=== PATIENT | female | born 1965 | race Caucasian/White ===

== ENCOUNTER 2020-07-11 19:29 | Inpatient (IN) | payer BC, MEDICAID ==
[~2020-07-11] VITALS: Ht 167.6 cm; Wt 95.1 kg
[2020-07-11] MEDS ORDERED: SODIUM CHLORIDE 0.9% 1,000 ML IV ONE (20:00)
[2020-07-11 20:32] LABS: Basophils # (auto) 0 10 ^3/uL (0-0.2); Eosinophils # (auto) 0.4 10 ^3/uL (0-0.8); Lymphocytes # (auto) 1.6 10 ^3/uL (0.4-5.4); Monocytes # (auto) 0.4 10 ^3/uL (0-1.3); Neutrophils # (auto) 4.4 10 ^3/uL (1.6-8.6)
[2020-07-11 20:34] LABS: Basophils % (auto) 0.4 % (0.0-2.0); Eosinophils % (auto) 5.3 % (0.0-7.0); Hematocrit 41.3 % (36.0-46.0); Lymphocytes % (auto) 22.9 % (10.0-50.0); Mean Corpuscular Hemoglobin 34.8 pg (28.0-32.0); Mean Corpuscular Hgb Conc. 33.8 g/dL (32.0-36.0); Mean Corpuscular Volume 102.8 fL (80.0-100.0); Neutrophils % (auto) 65.4 % (37.0-80.0); Nucleated Red Blood Cells % 0.1 %; Platelet Count (auto) 286 10^3/uL (140-450); Red Blood Cells 4.01 10^6/uL (4.0-5.20); White Blood Cell 6.8 10^3/uL (4.4-10.8)
[2020-07-11] MEDS ORDERED: ONDANSETRON HCL 4 MG/2 ML VIAL IV ONE (20:45)
[2020-07-11] MEDS ORDERED: MORPHINE SULF INJ 2 MG/ML SYRINGE 1ML IV ONE ×2 (20:45→21:30)
[2020-07-11] MEDS ORDERED: SODIUM CHLORIDE 0.9% 1,000 ML IVB ONE (20:45)
[2020-07-11 20:49] LABS: Alanine Aminotransferase 17 U/L (13-56); Albumin 3.7 g/dL (3.4-5.0); Anion Gap 5 (5-15); Aspartate Aminotransferase 24 U/L (15-37); BUN/Creatinine Ratio 13.5; Blood Urea Nitrogen 10 mg/dL (7-18); Calcium 8.5 mg/dL (8.5-10.1); Carbon Dioxide 24 mmol/L (21-32); Chloride 114 mmol/L (98-107); GFR African American 104 mL/min; GFR Non-African American 86 mL/min; Glucose 99 mg/dL (74-106); Potassium 3.7 mmol/L (3.5-5.1); Sodium 143 mmol/L (136-145)
[2020-07-11 20:54] LABS: Alkaline Phosphatase 61 U/L (45-117); Bilirubin, Total 0.2 mg/dL (0.2-1.0); Total Protein 7.1 g/dL (6.4-8.2)
[2020-07-11 21:28] LABS: INR 0.98 (0.9-1.15); Partial Thromboplastin Time 27.5 sec (23.0-31.2)
[2020-07-11] MEDS ORDERED: PROMETHAZINE HCL 25 MG/ML 1ML IV ONE (21:30)
[2020-07-11] MEDS ORDERED: SODIUM CHLORIDE 0.9% 500 ML IV ONE (21:30)
[2020-07-11] MEDS ORDERED: TAMSULOSIN HYDROCHLORIDE 0.4 MG CAP PO ONE (21:30)
[2020-07-11] MEDS ORDERED: ACETAMINOPHEN 325 MG TAB PO PRN (21:30)
[2020-07-11] MEDS ORDERED: TEMAZEPAM 15 MG CAP PO PRN (21:30)
[2020-07-11] MEDS: FAMOTIDINE 20 MG TAB PO SCH (22:07)
[2020-07-11 22:30] VITALS: BP 121/83
[2020-07-11] MEDS: MORPHINE SULF INJ 2 MG/ML SYRINGE 1ML IV PRN (22:51)
--- NOTE | 2020-07-11 22:57 | NUR ---
MS admit from ER SHERWIN,DEBRA admitted to tele/MS, SBAR not received. Patient oriented to Mariana Walker primary RN, unit, room, bed, and unit policies regarding patient care and visiting hours. Patient weighed by bedscale and encouraged to call if they need something. All questions and concerns addressed, patient verbalized understanding.
--- NOTE | 2020-07-11 23:52 | NUR ---
Patient told to void in the hat in the toilet. Patient aware to call once she has voided so urine can be strained. Will continue to monitor.
[2020-07-12] MEDS ORDERED: PARO-135 (00:58)
[2020-07-12] MEDS ORDERED: MEDR2.5T3 PO (00:58)
[2020-07-12] MEDS ORDERED: ESTR1TAB3 PO (00:58)
[2020-07-12] MEDS ORDERED: [UNRECOGNIZED DRUG - CODE] PO (00:58)
[2020-07-12 04:58] VITALS: BP 95/61
[2020-07-12] MEDS: MORPHINE SULF INJ 2 MG/ML SYRINGE 1ML IV PRN ×2 (05:06→11:58)
--- NOTE | 2020-07-12 05:06 | NUR ---
Patient voided. Urine strained, no stones noted at this time. Will continue to monitor. Patient still in pain in her left flank. Morphine to be given per protocol based on patients pain level.
[2020-07-12 05:59] LABS: Basophils # (auto) 0 10 ^3/uL (0-0.2); Basophils % (auto) 0.3 % (0.0-2.0); Eosinophils # (auto) 0.3 10 ^3/uL (0-0.8); Eosinophils % (auto) 5.7 % (0.0-7.0); Hematocrit 35.4 % (36.0-46.0); Lymphocytes # (auto) 1.7 10 ^3/uL (0.4-5.4); Lymphocytes % (auto) 29.5 % (10.0-50.0); Mean Corpuscular Hemoglobin 35.2 pg (28.0-32.0); Mean Corpuscular Hgb Conc. 33.9 g/dL (32.0-36.0); Mean Corpuscular Volume 104.1 fL (80.0-100.0); Monocytes # (auto) 0.4 10 ^3/uL (0-1.3); Monocytes % (auto) 6.5 % (0.0-12.0); Neutrophils # (auto) 3.3 10 ^3/uL (1.6-8.6); Platelet Count (auto) 211 10^3/uL (140-450); Red Blood Cells 3.41 10^6/uL (4.0-5.20); White Blood Cell 5.7 10^3/uL (4.4-10.8)
[2020-07-12 06:18] LABS: Potassium 3.5 mmol/L (3.5-5.1)
[2020-07-12 06:23] LABS: BUN/Creatinine Ratio 17.4; Calcium 7.7 mg/dL (8.5-10.1)
[2020-07-12 09:00] VITALS: BP 118/75
[2020-07-12] MEDS: FAMOTIDINE 20 MG TAB PO SCH ×2 (09:06→21:11)
[2020-07-12] MEDS: ONDANSETRON HCL 4 MG/2 ML VIAL IV PRN (09:07)
[2020-07-12] MEDS: HYDROcodone-ACET 5/325MG TAB PO PRN ×3 (09:07→22:02)
--- NOTE | 2020-07-12 10:03 | NUR ---
SPOKE WITH Yissel MUELLER, INFORMED OF PATIENT STATUS. INFORMED PATIENT DID EAT BREAKFAST THIS MORNING AT 0800AM. RECEIVED ORDERS. SEE EMAR.
--- NOTE | 2020-07-12 10:45 | NUR ---
COVID SWAB COLLECTED AND WALKED UP TO LAB BY EVGENY MARIO.
[2020-07-12] MEDS ORDERED: TAMSULOSIN HYDROCHLORIDE 0.4 MG CAP PO ONE (11:30)
[2020-07-12 13:00] VITALS: BP 102/50
[2020-07-12] MEDS: SODIUM CHLORIDE 0.9% 1,000 ML IV SCH ×2 (13:56→21:13)
[2020-07-12] MEDS ORDERED: LIDOCAINE 1% HCL (LOCAL ANESTH.) INJ 20ML MDV ONE (15:27)
[2020-07-12] MEDS ORDERED: PROPOFOL 10 MG/ML 20 ML IV ONE (15:29)
[2020-07-12] MEDS ORDERED: ONDANSETRON HCL 4 MG/2 ML VIAL ONE (15:29)
[2020-07-12] MEDS ORDERED: SODIUM CHLORIDE LOCK 10 ML ONE (15:29)
[2020-07-12] MEDS ORDERED: fentaNYL CITRATE 100 MCG/2 ML VL ONE (15:30)
[2020-07-12] MEDS ORDERED: MIDAZOLAM HCL 1MG/1ML-2 ML VIAL ONE (15:30)
--- NOTE | 2020-07-12 16:35 | NUR ---
PATIENT WHEELED DOWN TO OR VIA BED FOR SCHEDULED PROCEDURE. PATIENT WITH PATENT IV TO R FOREARM 20 GAUGE. TRANSPORTED WITH MASK ON. NO S/S OF DISTRESS NOTED AT THIS TIME.
[2020-07-12 16:41] VITALS: BP 105/58
[2020-07-12] MEDS ORDERED: CIPROFLOXACIN 400MG/200ML 200 ML IV ONE (16:41)
[2020-07-12] MEDS ORDERED: MORPHINE SULFATE 4 MG/ML SYR/VIAL IV PRN (18:00)
[2020-07-12] MEDS ORDERED: METOCLOPRAMIDE HCL 5MG/ml INJ 2ml VIAL IV PRN (18:00)
[2020-07-12] MEDS ORDERED: HYDROmorphone HCL 2 MG/ML VL IV PRN (18:00)
[2020-07-12] MEDS ORDERED: IOHEXOL 300 MG/ML 100ML BOTTLE IJ ONE (18:27)
--- NOTE | 2020-07-12 20:00 | NUR ---
PT. RECEIVED FROM OR, PT. AWAKE, ALERT AND ORIENTED, V/S STABLE, NO C/O PAIN, NO SOB.
[2020-07-12 22:00] VITALS: BP 129/68
[2020-07-13] MEDS: HYDROcodone-ACET 5/325MG TAB PO PRN ×3 (02:02→10:29)
[2020-07-13] MEDS: SODIUM CHLORIDE 0.9% 1,000 ML IV SCH ×2 (03:05→09:56)
[2020-07-13 05:00] VITALS: BP 119/63
[2020-07-13 08:00] VITALS: BP 132/69
[2020-07-13 09:00] VITALS: BP 132/69
[2020-07-13] MEDS ORDERED: PATIENTS OWN MEDICATION PO SCH (10:00)
[2020-07-13] MEDS ORDERED: HYSINGLA PO SCH (10:00)
--- NOTE | 2020-07-13 10:00 | NUR ---
Patient said she has one pill left of her Hysingla (Hyrdocodone) from home, she gave it to the night supervisor RN, she takes it at 6:00 pm.
[2020-07-13] MEDS: FAMOTIDINE 20 MG TAB PO SCH (10:01)
--- NOTE | 2020-07-13 10:06 | NUR ---
Called the Pharmacist to change the schedule for POM Hysingla (Hydrocodone) to 1800 pm; patient stated she takes the medication at 6:00 pm. Pharmacist said there's only one pill of Hysingla left in the bottle. Pharmacist to change the schedule for Hysingla to 1800 pm.
[2020-07-13 12:41] VITALS: BP_SYST 115; BP_SYST 155; BP_DIAS 65; BP_DIAS 92
[2020-07-13 13:22] VITALS: BP 132/69
[2020-07-13 13:36] VITALS: BP 132/69
[2020-07-13] MEDS: ONDANSETRON HCL 4 MG/2 ML VIAL IV PRN (13:55)
--- NOTE | 2020-07-13 14:40 | NUR ---
Discharge instructions given as ordered. Encourage to follow up with PMD as instructed. All questions and concerns addressed. Patient verbalized understanding. Medication reconciliation form completed and copy given to patient. Home medications held in Pharmacy returned to patient. IV removed with catheter intact, pressure dressing applied. Patient is ambulatory, steady gait noted, patient refused to be discharged via wheelchair, patient stated her car is at the parking lot, she will drive home. No distress noted at time of departure.
[2020-07-13] MEDS ORDERED: TAMSULOSIN HYDROCHLORIDE 0.4 MG CAP PO SCH (18:00)
[2020-07-14] MEDS ORDERED: HYSINGLA PO SCH (18:00)
== END 2020-07-13 14:38 | disposition home or self-care (01) | DRG 694 ==
LOC: ER 19:31 → OVERFLOW 19:32 → WEST WING 22:24
PROVIDERS: ADMIT Nurse Practitioner; ATTEND Family Medicine
PROC: 0TF7XZZ Fragmentation in Left Ureter, External Approach (ICD-10-PCS; principal; 2020-07-12 18:10)
DX: N13.2 Hydronephrosis with renal and ureteral calculous obstruction (principal); E66.9 Obesity, unspecified; E86.0 Dehydration; Z20.828 Contact with and (suspected) exposure to other viral communicable diseases; Z88.0 Allergy status to penicillin; Z68.33 Body mass index [BMI] 33.0-33.9, adult; Z82.49 Family history of ischemic heart disease and other diseases of the circulatory system; Z85.05 Personal history of malignant neoplasm of liver; Z87.442 Personal history of urinary calculi
CPT/HCPCS: 36415; 71045; 74176; 80048; 80053; 83735; 84484; 85025; 85610; 85730; 86850; 86900; 86901; 87426; G0378; J2001; J2250; J2405; J2704

== ENCOUNTER 2021-02-03 20:12 | Emergency (ER) | payer BC, MEDICAID ==
[~2021-02-03] VITALS: Ht 165.1 cm; Wt 90.7 kg
[~2021-02-03 20:12] MED LIST: MEDR2.5T3 PO; PARO-135; [UNRECOGNIZED DRUG - CODE] PO
[2021-02-03 21:34] LABS: Basophils # (auto) 0 10 ^3/uL (0-0.2); Basophils % (auto) 0.3 % (0.0-2.0); Eosinophils # (auto) 0.3 10 ^3/uL (0-0.8); Eosinophils % (auto) 4.3 % (0.0-7.0); Hematocrit 41.1 % (36.0-46.0); Hemoglobin 14.3 g/dL (12.2-16.2); Lymphocytes # (auto) 1.7 10 ^3/uL (0.4-5.4); Lymphocytes % (auto) 23.6 % (10.0-50.0); Mean Corpuscular Hemoglobin 35.8 pg (28.0-32.0); Mean Corpuscular Hgb Conc. 34.9 g/dL (32.0-36.0); Mean Corpuscular Volume 102.6 fL (80.0-100.0); Monocytes # (auto) 0.5 10 ^3/uL (0-1.3); Monocytes % (auto) 7.3 % (0.0-12.0); Neutrophils # (auto) 4.6 10 ^3/uL (1.6-8.6); Neutrophils % (auto) 64.5 % (37.0-80.0); Nucleated Red Blood Cells % 0.1 %; Platelet Count (auto) 285 10^3/uL (140-450); Red Blood Cells 4.01 10^6/uL (4.0-5.20); Red Cell Distribution Width 13.2 % (11.8-14.3); White Blood Cell 7.1 10^3/uL (4.4-10.8)
[2021-02-03 21:38] LABS: Albumin 3.8 g/dL (3.4-5.0); BUN/Creatinine Ratio 11.5; Calcium 8.1 mg/dL (8.5-10.1); Potassium 3.6 mmol/L (3.5-5.1)
[2021-02-03 21:41] LABS: Bilirubin, Total 0.1 mg/dL (0.2-1.0); Total Protein 7.1 g/dL (6.4-8.2)
[2021-02-04 01:39] LABS: Urine Bacteria MANY /hpf (None Seen); Urine Blood Negative /uL (Negative); Urine Hyaline Cast MOD /lpf (0 - 2); Urine Mucus FEW (None Seen); Urine Specific Gravity 1.026 (1.001-1.035); Urine WBC 12 /hpf (0 - 5)
[2021-02-04] MEDS ORDERED: SODIUM CHLORIDE 0.9% 1,000 ML IV ONE (03:30)
[2021-02-04] MEDS ORDERED: KETOROLAC TROMETH 30 MG/ML 1ML VIAL IV ONE (03:30)
[2021-02-04 06:00] VITALS: BP 125/64
== END 2021-02-04 06:40 | disposition left against medical advice (07) ==
LOC: ER 20:16
DX: R10.11 Right upper quadrant pain (principal); R11.2 Nausea with vomiting, unspecified; M54.9 Dorsalgia, unspecified; R30.0 Dysuria; Z79.899 Other long term (current) drug therapy; Z88.0 Allergy status to penicillin
CPT/HCPCS: 36415; 74176; 80053; 81001; 85025; 93005; 96361; 96374; 99285; J1885; J7030

== ENCOUNTER 2023-11-16 05:59 | Inpatient (IN) | payer BC, MEDICAID ==
[~2023-11-16] VITALS: Ht 167.6 cm; Wt 74.9 kg
[~2023-11-16 05:59] MED LIST changes: -MEDR2.5T3 PO; +MEDR2.5T5 PO
[2023-11-16 06:40] LABS: Basophils # (auto) 0 10 ^3/uL (0-0.2); Eosinophils # (auto) 0 10 ^3/uL (0-0.8); Eosinophils % (auto) 0.4 % (0.0-7.0); Lymphocytes # (auto) 0.6 10 ^3/uL (0.4-5.4); Lymphocytes % (auto) 6.8 % (10.0-50.0); Monocytes # (auto) 0.4 10 ^3/uL (0-1.3)
[2023-11-16 06:42] LABS: Basophils % (auto) 0.1 % (0.0-2.0); Hematocrit 39.4 % (36.0-46.0); Hemoglobin 13.4 g/dL (12.2-16.2); Mean Corpuscular Hemoglobin 33.7 pg (28.0-32.0); Mean Corpuscular Hgb Conc. 33.9 g/dL (32.0-36.0); Mean Corpuscular Volume 99.2 fL (80.0-100.0); Monocytes % (auto) 4.3 % (0.0-12.0); Neutrophils # (auto) 7.8 10 ^3/uL (1.6-8.6); Neutrophils % (auto) 88.4 % (37.0-80.0); Red Blood Cells 3.97 10^6/uL (4.0-5.20); Red Cell Distribution Width 13.1 % (11.8-14.3); White Blood Cell 8.8 10^3/uL (4.4-10.8)
[2023-11-16 07:01] LABS: Alkaline Phosphatase 63 U/L (46-116); Anion Gap 9 (5-15); Aspartate Aminotransferase 19 U/L (13-40); BUN/Creatinine Ratio 10.3 (10.0-20.0); Blood Urea Nitrogen 9 mg/dL (9-23); Calcium 8.9 mg/dL (8.7-10.4); Carbon Dioxide 21 mmol/L (20-30); Chloride 109 mmol/L (98-107); Glucose 157 mg/dL (74-106); Lipase 24 U/L (12-53); Potassium 3.6 mmol/L (3.5-5.1); Sodium 139 mmol/L (136-145)
[2023-11-16 07:02] LABS: Albumin 4.2 g/dL (3.2-4.8); Bilirubin, Total 0.3 mg/dL (0.2-1.0); Total Protein 6.8 g/dL (5.7-8.2)
[2023-11-16 07:04] LABS: Alanine Aminotransferase < 9 U/L (7-40)
[2023-11-16] MEDS: PROCHLORPERAZINE EDISYLATE 5 MG/ML 2ML VIAL IV ONE (08:43)
[2023-11-16] MEDS: SODIUM CHLORIDE 0.9% 1,000 ML IVB ONE (08:43)
[2023-11-16] MEDS: MORPHINE SULFATE 4 MG/ML SYR/VIAL IV ONE (08:44)
[2023-11-16 11:04] VITALS: BP 106/61; PULSE 71; RESP 18; TEMP 97.6; O2SAT 93
[2023-11-16] MEDS ORDERED: ESTR1TAB6 PO (11:44)
[2023-11-16] MEDS ORDERED: PARO-135 PO (11:44)
[2023-11-16] MEDS ORDERED: LISI10TA34 PO (11:44)
[2023-11-16] MEDS ORDERED: GABA-1250 PO (11:44)
[2023-11-16] MEDS ORDERED: MORPHINE SULFATE INJ 2 MG/ml SYRG IV PRN (11:45)
[2023-11-16] MEDS ORDERED: SODIUM CHLORIDE 0.9% 1,000 ML IV SCH (11:45)
[2023-11-16] MEDS ORDERED: DOCUSATE SOD 100 MG CAP PO PRN (11:45)
[2023-11-16] MEDS ORDERED: ONDANSETRON HCL 4 MG/2 ML VIAL IV PRN (11:45)
[2023-11-16] MEDS ORDERED: ACETAMINOPHEN 325 MG TAB PO PRN (11:45)
[2023-11-16] MEDS ORDERED: HYDROcodone-ACET 5/325MG TAB PO PRN (11:45)
[2023-11-16] MEDS ORDERED: TAMSULOSIN HYDROCHLORIDE 0.4 MG CAP PO ONE (12:00)
[2023-11-16] MEDS ORDERED: GABAPENTIN 300 MG CAP PO SCH (22:00)
[2023-11-17] MEDS ORDERED: LISINOPRIL 10 MG TAB PO SCH (10:00)
[2023-11-17] MEDS ORDERED: ESTRADIOL 1 MG TAB PO SCH (10:00)
[2023-11-17] MEDS ORDERED: PARoxetine 20 MG TAB PO SCH (10:00)
[2023-11-17] MEDS ORDERED: TAMSULOSIN HYDROCHLORIDE 0.4 MG CAP PO SCH (18:00)
== END 2023-11-16 14:16 | disposition left against medical advice (07) | DRG 694 ==
LOC: EDBD 05:59 → ER 05:59 → OVERFLOW 11:44
PROVIDERS: ADMIT Nurse Practitioner Family; ATTEND Nurse Practitioner Family
DX: N13.2 Hydronephrosis with renal and ureteral calculous obstruction (principal); I10 Essential (primary) hypertension; F32.A Depression, unspecified; Z88.0 Allergy status to penicillin; Z98.1 Arthrodesis status; Z87.442 Personal history of urinary calculi; Z82.49 Family history of ischemic heart disease and other diseases of the circulatory system
CPT/HCPCS: 36415; 74176; 80053; 83690; 85025; 93005; G0378

== ENCOUNTER 2023-11-18 12:36 | Inpatient (IN) | payer BC, MEDICAID ==
[~2023-11-18] VITALS: Ht 167.6 cm; Wt 107.7 kg
[~2023-11-18 12:36] MED LIST changes: +ESTR1TAB6 PO; +GABA-1250 PO; +LISI10TA34 PO; -PARO-135; +PARO-135 PO
[2023-11-18 14:02] LABS: Basophils # (auto) 0 10 ^3/uL (0-0.2); Basophils % (auto) 0.1 % (0.0-2.0); Eosinophils # (auto) 0.2 10 ^3/uL (0-0.8); Eosinophils % (auto) 2.5 % (0.0-7.0); Hematocrit 39.2 % (36.0-46.0); Hemoglobin 13.2 g/dL (12.2-16.2); Lymphocytes # (auto) 1.5 10 ^3/uL (0.4-5.4); Lymphocytes % (auto) 20.2 % (10.0-50.0); Mean Corpuscular Hemoglobin 33.9 pg (28.0-32.0); Mean Corpuscular Hgb Conc. 33.7 g/dL (32.0-36.0); Mean Corpuscular Volume 100.3 fL (80.0-100.0); Monocytes # (auto) 0.6 10 ^3/uL (0-1.3); Monocytes % (auto) 8.4 % (0.0-12.0); Neutrophils % (auto) 68.8 % (37.0-80.0); Red Blood Cells 3.91 10^6/uL (4.0-5.20); Red Cell Distribution Width 13.6 % (11.8-14.3); White Blood Cell 7.3 10^3/uL (4.4-10.8)
[2023-11-18] MEDS: SODIUM CHLORIDE 0.9% 1,000 ML IVB ONE (14:09)
[2023-11-18] MEDS: ONDANSETRON HCL 4 MG/2 ML VIAL IV ONE (14:10)
[2023-11-18] MEDS: KETOROLAC TROMETH 30 MG/ML 1ML VIAL IV ONE (14:10)
[2023-11-18] MEDS: MORPHINE SULFATE 4 MG/ML SYR/VIAL IV ONE (14:10)
[2023-11-18 14:13] LABS: Chloride 108 mmol/L (98-107); Potassium 3.6 mmol/L (3.5-5.1); Sodium 142 mmol/L (136-145)
[2023-11-18 14:14] LABS: Anion Gap 8 (5-15); Carbon Dioxide 26 mmol/L (20-30)
[2023-11-18 14:15] LABS: Calcium 9.2 mg/dL (8.5-10.1)
[2023-11-18 14:19] LABS: BUN/Creatinine Ratio 6.5 (10.0-20.0); Blood Urea Nitrogen 6 mg/dL (9-23); Glucose 88 mg/dL (74-106)
[2023-11-18] MEDS: SODIUM CHLORIDE 0.9% 1,000 ML IV SCH (15:00)
[2023-11-18] MEDS: SODIUM CHLORIDE 0.9% 500 ML IV ONE (15:35)
[2023-11-18] MEDS: TAMSULOSIN HYDROCHLORIDE 0.4 MG CAP PO ONE (15:38)
[2023-11-18] MEDS ORDERED: SUMA50TA2 PO (18:27)
[2023-11-18] MEDS ORDERED: HYDR-4069 (18:27)
[2023-11-18 19:45] VITALS: RESP 18; O2SAT 93
[2023-11-18] MEDS: TAMSULOSIN HYDROCHLORIDE 0.4 MG CAP PO SCH (20:01)
[2023-11-18] MEDS: HYDROcodone-ACET 5/325MG TAB PO PRN (20:02)
[2023-11-18] MEDS: ONDANSETRON HCL 4 MG/2 ML VIAL IV PRN (20:13)
[2023-11-18] MEDS: MANNITOL FTV 25% 12.5 GM/50 ML 50 ML IV ONE (20:27)
[2023-11-18] MEDS: GABAPENTIN 300 MG CAP PO SCH (20:45)
[2023-11-18 22:00] VITALS: BP 113/55; PULSE 81; RESP 17; TEMP 98; O2SAT 93
[2023-11-18] MEDS: MORPHINE SULFATE INJ 2 MG/ml SYRG IV PRN (23:06)
[2023-11-19 05:00] VITALS: BP 100/48; PULSE 77; RESP 17; TEMP 98.3; O2SAT 93
[2023-11-19 06:34] LABS: Basophils # (auto) 0 10 ^3/uL (0-0.2); Basophils % (auto) 0.3 % (0.0-2.0); Eosinophils # (auto) 0.2 10 ^3/uL (0-0.8); Lymphocytes # (auto) 1.4 10 ^3/uL (0.4-5.4); Neutrophils # (auto) 1.7 10 ^3/uL (1.6-8.6); White Blood Cell 3.6 10^3/uL (4.4-10.8)
[2023-11-19 06:36] LABS: Eosinophils % (auto) 5.2 % (0.0-7.0); Hematocrit 32.6 % (36.0-46.0); Hemoglobin 11.1 g/dL (12.2-16.2); Mean Corpuscular Hemoglobin 34.4 pg (28.0-32.0); Mean Corpuscular Hgb Conc. 34.1 g/dL (32.0-36.0); Mean Corpuscular Volume 100.9 fL (80.0-100.0); Monocytes # (auto) 0.4 10 ^3/uL (0-1.3); Monocytes % (auto) 9.8 % (0.0-12.0); Neutrophils % (auto) 46.7 % (37.0-80.0); Red Blood Cells 3.23 10^6/uL (4.0-5.20); Red Cell Distribution Width 13.2 % (11.8-14.3)
[2023-11-19 06:48] LABS: Alanine Aminotransferase < 9 U/L (7-40); Albumin 3.6 g/dL (3.2-4.8); Alkaline Phosphatase 54 U/L (46-116); Anion Gap 6 (5-15); Aspartate Aminotransferase 22 U/L (13-40); BUN/Creatinine Ratio 7.1 (10.0-20.0); Bilirubin, Total 0.4 mg/dL (0.2-1.0); Blood Urea Nitrogen 6 mg/dL (9-23); Calcium 8.5 mg/dL (8.5-10.1); Carbon Dioxide 26 mmol/L (20-30); Chloride 111 mmol/L (98-107); Glucose 106 mg/dL (74-106); Potassium 3.6 mmol/L (3.5-5.1); Sodium 143 mmol/L (136-145); Total Protein 5.8 g/dL (5.7-8.2)
[2023-11-19 08:53] LABS: INR 1.08 (0.9-1.15); Partial Thromboplastin Time 29.7 SEC (24.5-34.5); Prothrombin Time 11.3 sec (9.3-11.8)
[2023-11-19 09:04] VITALS: BP 112/54; PULSE 79; RESP 19; TEMP 98.4; O2SAT 97
[2023-11-19] MEDS: LISINOPRIL 5 MG TAB PO SCH (10:40)
[2023-11-19] MEDS: PARoxetine 20 MG TAB PO SCH (10:41)
[2023-11-19 12:46] VITALS: BP 126/75; PULSE 71; RESP 18; TEMP 98.6; O2SAT 94
[2023-11-19] MEDS: ESTRADIOL 1 MG TAB PO SCH (13:27)
[2023-11-19] MEDS: medroxyPROGESTERone ACETATE 5 MG TAB PO SCH (13:27)
[2023-11-19 16:46] VITALS: BP 147/83; PULSE 86; RESP 16; TEMP 98; O2SAT 95
[2023-11-19 17:01] LABS: Urine Bacteria NONE SEEN /hpf (None Seen); Urine Blood 2+ /uL (Negative); Urine Clarity Clear (Clear); Urine Color Colorless (Yellow); Urine Protein, UAD Negative (Negative); Urine Specific Gravity 1.016 (1.001-1.035); Urine Urobilinogen Normal (Negative); Urine WBC 8 /hpf (0 - 5); Urine pH 5.5 (5.0-8.0)
[2023-11-19 20:00] VITALS: PULSE 88; RESP 20
[2023-11-19 22:00] VITALS: BP 122/61; PULSE 88; RESP 20; TEMP 98.4; O2SAT 92
[2023-11-20] VITALS (9 sets, daily range): BP systolic 92–140; BP diastolic 50–75; PULSE 69–89; RESP 14–18; TEMP 97.5–98.9; O2SAT 90–97
[2023-11-20 05:55] LABS: Basophils # (auto) 0 10 ^3/uL (0-0.2); Basophils % (auto) 0.3 % (0.0-2.0); Eosinophils # (auto) 0.3 10 ^3/uL (0-0.8); Eosinophils % (auto) 6.1 % (0.0-7.0); Hematocrit 33.5 % (36.0-46.0); Hemoglobin 10.6 g/dL (12.2-16.2); Lymphocytes # (auto) 1.5 10 ^3/uL (0.4-5.4); Lymphocytes % (auto) 35.8 % (10.0-50.0); Mean Corpuscular Hemoglobin 33.5 pg (28.0-32.0); Mean Corpuscular Hgb Conc. 31.7 g/dL (32.0-36.0); Mean Corpuscular Volume 105.8 fL (80.0-100.0); Monocytes # (auto) 0.4 10 ^3/uL (0-1.3); Neutrophils % (auto) 47.8 % (37.0-80.0); Nucleated Red Blood Cells % 0.1 %; Red Blood Cells 3.17 10^6/uL (4.0-5.20); Red Cell Distribution Width 14.2 % (11.8-14.3); White Blood Cell 4.2 10^3/uL (4.4-10.8)
[2023-11-20 06:16] LABS: Chloride 113 mmol/L (98-107); Potassium 3.6 mmol/L (3.5-5.1); Sodium 145 mmol/L (136-145)
[2023-11-20 06:17] LABS: Anion Gap 6 (5-15); Calcium 8.2 mg/dL (8.7-10.4); Carbon Dioxide 26 mmol/L (20-30)
[2023-11-20 06:22] LABS: BUN/Creatinine Ratio 9.3 (10.0-20.0); Blood Urea Nitrogen 7 mg/dL (9-23); Glucose 94 mg/dL (74-106); Magnesium 1.9 mg/dL (1.6-2.6)
[2023-11-20] MEDS: fentaNYL CITRATE 100 MCG/2 ML VL IV ONE (10:15)
[2023-11-20] MEDS: MIDAZOLAM HCL 2MG/2ML 2ml VIAL (1mg/ml) IV ONE (10:15)
[2023-11-20] MEDS: CLINDAMYCIN 600MG IV 50 ML IV ONE (10:15)
[2023-11-20] MEDS: fentaNYL CITRATE 100 MCG/2 ML VL ONE ×2 (10:16)
[2023-11-20] MEDS: MIDAZOLAM HCL 2MG/2ML 2ml VIAL (1mg/ml) ONE ×2 (10:16→10:17)
[2023-11-20] MEDS: LIDOCAINE 2%HCL (LOCAL ANESTH.) INJ 20ML MDV ONE ×2 (10:23→10:24)
[2023-11-20] MEDS: IOHEXOL 350 MG/ML 100ML IJ ONE (10:23)
[2023-11-21] MEDS: DOCUSATE SOD 100 MG CAP PO PRN (04:03)
[2023-11-21 05:00] VITALS: BP 119/61; PULSE 67; RESP 17; TEMP 97.8; O2SAT 97
[2023-11-21 06:21] LABS: Basophils # (auto) 0 10 ^3/uL (0-0.2); Eosinophils # (auto) 0.2 10 ^3/uL (0-0.8); Lymphocytes # (auto) 1.3 10 ^3/uL (0.4-5.4); Monocytes # (auto) 0.4 10 ^3/uL (0-1.3)
[2023-11-21 06:23] LABS: Basophils % (auto) 0.2 % (0.0-2.0); Eosinophils % (auto) 5.7 % (0.0-7.0); Lymphocytes % (auto) 33.2 % (10.0-50.0); Mean Corpuscular Hemoglobin 34.6 pg (28.0-32.0); Mean Corpuscular Hgb Conc. 34.6 g/dL (32.0-36.0); Mean Corpuscular Volume 99.9 fL (80.0-100.0); Monocytes % (auto) 9.8 % (0.0-12.0); Neutrophils % (auto) 51.1 % (37.0-80.0); Red Blood Cells 2.91 10^6/uL (4.0-5.20); Red Cell Distribution Width 13.1 % (11.8-14.3)
[2023-11-21 06:38] LABS: Calcium 8.1 mg/dL (8.7-10.4); Chloride 109 mmol/L (98-107); Potassium 3.2 mmol/L (3.5-5.1); Sodium 142 mmol/L (136-145)
[2023-11-21 06:39] LABS: Anion Gap 7 (5-15); Carbon Dioxide 26 mmol/L (20-30)
[2023-11-21 06:44] LABS: BUN/Creatinine Ratio 8.8 (10.0-20.0); Blood Urea Nitrogen 6 mg/dL (9-23); Glucose 107 mg/dL (74-106)
[2023-11-21 06:45] LABS: Magnesium 1.5 mg/dL (1.6-2.6)
[2023-11-21 09:00] VITALS: BP 146/69; PULSE 73; RESP 17; TEMP 99; O2SAT 95
[2023-11-21] MEDS: POTASSIUM CHL 20 Meq TABLET PO ONE (09:50)
[2023-11-21 13:00] VITALS: BP 139/73; PULSE 78; RESP 19; TEMP 97.9; O2SAT 95
[2023-11-21] MEDS: KETOROLAC TROMETH 30 MG/ML 1ML VIAL IV ONE (14:51)
[2023-11-21 17:00] VITALS: BP 141/82; PULSE 67; RESP 17; TEMP 97.8; O2SAT 97
[2023-11-21 20:00] VITALS: PULSE 89; RESP 20; O2SAT 98
[2023-11-21 21:35] VITALS: BP 128/52; PULSE 68; RESP 16; TEMP 97.5; O2SAT 98
[2023-11-22 04:38] VITALS: BP 111/45; PULSE 69; RESP 14; TEMP 97.7; O2SAT 98
[2023-11-22 05:38] LABS: Basophils # (auto) 0 10 ^3/uL (0-0.2); Basophils % (auto) 0.4 % (0.0-2.0); Eosinophils # (auto) 0.2 10 ^3/uL (0-0.8); Eosinophils % (auto) 7.1 % (0.0-7.0); Hematocrit 32.4 % (36.0-46.0); Hemoglobin 10.9 g/dL (12.2-16.2); Lymphocytes # (auto) 1.2 10 ^3/uL (0.4-5.4); Lymphocytes % (auto) 34.3 % (10.0-50.0); Mean Corpuscular Hemoglobin 33.9 pg (28.0-32.0); Mean Corpuscular Hgb Conc. 33.7 g/dL (32.0-36.0); Mean Corpuscular Volume 100.6 fL (80.0-100.0); Monocytes # (auto) 0.3 10 ^3/uL (0-1.3); Monocytes % (auto) 9.7 % (0.0-12.0); Neutrophils # (auto) 1.7 10 ^3/uL (1.6-8.6); Neutrophils % (auto) 48.5 % (37.0-80.0); Nucleated Red Blood Cells % 0.2 %; Red Blood Cells 3.22 10^6/uL (4.0-5.20); Red Cell Distribution Width 13.2 % (11.8-14.3); White Blood Cell 3.4 10^3/uL (4.4-10.8)
[2023-11-22 06:08] LABS: Albumin 3.2 g/dL (3.2-4.8); Alkaline Phosphatase 43 U/L (46-116); Anion Gap 4 (5-15); Aspartate Aminotransferase 15 U/L (13-40); BUN/Creatinine Ratio 10.6 (10.0-20.0); Blood Urea Nitrogen 7 mg/dL (9-23); Calcium 8.7 mg/dL (8.7-10.4); Carbon Dioxide 28 mmol/L (20-30); Chloride 112 mmol/L (98-107); Glucose 88 mg/dL (74-106); Potassium 3.7 mmol/L (3.5-5.1); Sodium 144 mmol/L (136-145)
[2023-11-22 06:09] LABS: Bilirubin, Total 0.2 mg/dL (0.2-1.0); Total Protein 5.3 g/dL (5.7-8.2)
[2023-11-22 06:21] LABS: Alanine Aminotransferase < 9 U/L (7-40)
[2023-11-22 08:00] VITALS: BP 124/54; PULSE 68; RESP 20; TEMP 98.1; O2SAT 94
[2023-11-22] MEDS: ACETAMINOPHEN 325 MG TAB PO PRN (08:19)
[2023-11-22 12:00] VITALS: BP 101/49; PULSE 71; RESP 20; TEMP 97.5; O2SAT 93
[2023-11-22] MEDS ORDERED: TAMS-35 PO (14:52)
[2023-11-22] MEDS ORDERED: CIPR-214 PO (14:52)
[2023-11-22 16:00] VITALS: BP 121/81; PULSE 81; RESP 16; TEMP 98.3; O2SAT 92
== END 2023-11-22 16:00 | disposition home or self-care (01) | DRG 694 ==
LOC: ER 12:36 → OVERFLOW 15:24 → WEST WING 18:04
PROVIDERS: ADMIT Internal Medicine; ATTEND Internal Medicine
PROC: 0T9030Z Drainage of Right Kidney with Drainage Device, Percutaneous Approach (ICD-10-PCS; principal; 2023-11-20)
DX: N13.2 Hydronephrosis with renal and ureteral calculous obstruction (principal); I10 Essential (primary) hypertension; F32.A Depression, unspecified; E87.6 Hypokalemia; Z88.0 Allergy status to penicillin; Z87.442 Personal history of urinary calculi; Z82.49 Family history of ischemic heart disease and other diseases of the circulatory system; Z80.0 Family history of malignant neoplasm of digestive organs
CPT/HCPCS: 36415; 50432; 74176; 76775; 76942; 80048; 80053; 81001; 83735; 85025; 85610; 85730; 96361; 96374; 96375; 99152; G0378; J1885; J2250; J2405

== ENCOUNTER 2024-12-22 16:48 | Emergency (ER) | payer BC, MEDICAID ==
[~2024-12-22] VITALS: Ht 165.1 cm; Wt 83.1 kg
[~2024-12-22 16:48] MED LIST changes: +CIPR-214 PO; +HYDR-4069; +SUMA50TA2 PO; +TAMS-35 PO; -[UNRECOGNIZED DRUG - CODE] PO
[2024-12-22 17:25] VITALS: BP 120/88; PULSE 111; RESP 22; TEMP 97.5; O2SAT 95
[2024-12-22] MEDS ORDERED: MEDR2.5T5 PO (17:39)
[2024-12-22] MEDS ORDERED: ESTR1TAB6 PO (17:39)
[2024-12-22] MEDS ORDERED: PAR20T PO (17:39)
--- NOTE | 2024-12-22 17:41 | ED.PDOC ---
History of Present Illness HPI Comments A 59 YEAR OLD FEMALE PRESENTS TO THE ED WITH CHIEF COMPLAINT OF MEDICATION REFILL. PATIENT REPORTS THAT SHE HAS BEEN EXPERIENCING SOME SHAKINESS SINCE RUNNING OUT OF HER PAXIL, PROVERA, AND ESTRADIOL. PATIENT REQUESTS REFILLS FOR HER MEDICATION. PATIENT DENIES ANY FURTHER SYMPTOMS AT THIS TIME. PT DENIES SI/ HI AND OTHER COMPLAINTS. NO OTHER SYMPTOMS REPORTED AT THIS TIME OF CARE. Chief Complaint: Mental Health Time Seen by MD: 17:35 Primary Care Provider: NONE Reviewed Notes: Nurses Notes, Medications, Allergies Allergies: Coded Allergies: Penicillins (Verified Allergy, Unknown, 07/11/20) Home Meds Active Scripts Paroxetine (PAXIL TABLET) 20 Mg Tb, 1 TAB PO DAILY, #30 TAB Prov:ENIO JALLOH 12/22/24 Estradiol (Estradiol) 1 Mg Tab, 1 MG PO DAILY, #30 TAB Prov:ENIO JALLOH 12/22/24 Medroxyprogesterone Acetate (Medroxyprogesterone Aceta) 2.5 Mg Tab, 1 TAB PO DAILY, #30 TAB Prov:ENIO JALLOH 12/22/24 Tamsulosin Hcl (Flomax) 0.4 Mg Cap, 1 CAP PO DAILY for 14 Days, #14 CAP 11 Refills Prov:PAULINA CHU RESIDENT 11/22/23 Ciprofloxacin HCl (Ciprofloxacin Hydrochlori) 500 Mg Tab, 500 MG PO BID for 5 Days, #10 TAB Prov:VLADPAULINA RESIDENT 11/22/23 Reported Medications Sumatriptan Succinate (Imitrex) 50 Mg Tab, PO 11/18/23 Hydrocodone-Acetaminophen (Hydrocodone/Acetaminophen 7.5-325 mg) 1 Tab Tab 11/18/23 Paroxetine Hydrochloride (Paroxetine Hydrochloride) 40 Mg Tab, 40 MG PO DAILY 11/16/23 Estradiol (Estradiol) 1 Mg Tab, 1 TAB PO DAILY 11/16/23 Gabapentin (Gabapentin) 300 Mg Cap, 300 MG PO BID 11/16/23 Lisinopril (Lisinopril) 10 Mg Tab, 1 TAB PO DAILY 11/16/23 Medroxyprogesterone Acetate (Medroxyprogesterone Aceta) 2.5 Mg Tab, 1 TAB PO DAILYPRN 07/12/20 Information Source: Patient Mode of Arrival: Ambulatory Severity: Mild, None Timing: Days Duration: Since onset Prehospital treatment: None Medication Refill: Ran out of Medication Past Medical History PAST MEDICAL HISTORY: Anxiety, Depression, HTN, Kidney Stones Surgical History: Denies all surgeries INSPECTOR DIALS History: Denies all INSPECTOR DIALS Hx Family History Family History: Family hx of HTN Social History Smoker: Non-Smoker Alcohol: Rarely Drugs: Denies Drug Use Lives In: Home Constitutional: denies: chills, diaphoresis, fatigue, fever, malaise, sweats, weakness, others EENTM: denies: blurred vision, double vision, ear bleeding, ear discharge, ear drainage, ear pain, ear ringing, eye pain, eye redness, hearing loss, mouth pain, mouth swelling, nasal discharge, nose bleeding, nose congestion, nose pain, photophobia, tearing, throat pain, throat swelling, voice changes, others Respiratory: denies: cough, hemoptysis, orthopnea, SOB at rest, shortness of breath, SOB with excertion, stridor, wheezing, others Cardiovascular: denies: chest pain, dizzy spells, diaphoresis, Dyspnea on exertion, edema, irregular heart beat, left arm pain, lightheadedness, palpitations, PND, syncope, others Gastrointestinal: denies: abdomen distended, abdominal pain, blood streaked bowels, constipated, diarrhea, dysphagia, difficulty swallowing, hematemesis, melena, nausea, poor appetite, poor fluid intake, rectal bleeding, rectal pain, vomiting, others Genitourinary: denies: abnormal vagina bleeding, burning, dyspareunia, dysuria, flank pain, frequency, hematuria, incontinence, pain, , vagina disc harge, urgency, others Neurological: denies: dizziness, fainting, headache, left sided numbness, left sided weakness, numbness, paresthesia, pre-existing deficit, right sided numbness, right sided weakness, seizure, speech problems, tingling, tremors, weakness, others Musculoskeletal: denies: back pain, gout, joint pain, joint swelling, muscle pain, muscle stiffness, neck pain, others Integumetry: denies: bruises, change in color, change in hair/nails, dryness, laceration, lesions, lumps, rash, wounds, others Allergic/Immunocompromised: denies: Difficulty Healing, Frequent Infections, Hives, Itching, others Hematologic/Lymphatic: denies: anemia, blood clots, easy bleeding, easy bruising, swollen glands, others Endocrine: denies: excessive hunger, excessive sweating, excessive thirst, excessive urination, flushing, intolerance to cold, intolerance to heat, unexplained weight gain, unexplained weight loss, others Psychiatric: denies: anxiety, bipolar disorder, depression, hopeless, panic disorder, schizophrenia, sleepless, suicidal, others All Other Systems: Reviewed and Negative Physical Exam General Appearance: No Apparent Distress, Normal HEENT: Normal ENT Inspection, PERRL/EOMI Neck: Full Range of Motion, Non-Tender, Normal, Normal Inspection Respiratory: Chest Non-Tender, Lungs Clear, No Accessory Muscle Use, No Respiratory Distress, Normal Breath Sounds Cardiovascular: No Edema, No JVD, No Murmur, No Gallop, Normal Peripheral Pulses, Regular Rate/Rhythm Breast Exam: Deferred Gastrointestinal: No Organomegaly, Non Tender, No Pulsatile Mass, Normal Bowel Sounds, Soft Genitalia: Deferred Pelvic: Deferred Rectal: Deferred Extremities: No calf tenderness, Normal capillary refill, Normal inspection, Normal range of motion, Non-tender, No pedal edema Musculoskeletal : Apperance: Normal Neurologic: Alert, certifier II-XII nml as Tested, No Motor Deficits, Normal Affect, Normal Mood, No Sensory Deficits Cerebellar Function: Normal Reflexes: Normal Skin: Dry, Normal Color, Warm Peripheral Pulses: 2+ carotid (R), 2+ carotid (L) Lymphatic: No Adenopathy Was a procedure done? Was a procedure done?: No Differential Dx Considerations may include: MED REFILL, HX OF DEPRESSION X-Ray, Labs, Meds, VS Vital Signs Date Time Temp Pulse Resp B/P (MAP) Pulse Ox O2 Delivery O2 Flow Rate FiO2 12/22/24 17:25 111 22 95 Room Air 12/22/24 17:25 97.5 111 22 120/88 (99) 95 97.5 12/22/24 17:10 97.5 111 20 120/88 (99) 95 97.5 X-Ray, Labs, Meds, VS Comment EXTERNAL MEDICAL RECORDS REVIEWED: [NONE] INDEPENDENT HISTORIANS: [NONE] SOCIAL DETERMINANTS OF HEALTH: [NONE] LABS ORDERED: NONE REVIEWED AND INTERPRETED RESULTS: NONE IMAGING ORDERED: NONE TREATMENTS ORDERED: NONE PROCEDURES PERFORMED: NONE CRITICAL CARE TIME: NONE I HAVE DISCUSSED THE PATIENT WITH THE ATTENDING PHYSICIAN [[place]] AND HE AGREES WITH THE PATIENT'S PLAN OF CARE AND DISPOSITION. BASED ON HISTORY OF PRESENT ILLNESS, AND PHYSICAL EXAM, PATIENT WILL BE DISC HARGED HOME. DISCUSSED PLAN FOR DISCHARGE HOME WITH RX ESTRADIOL, PROVERA, AND PAXIL. MEDICATION WARNINGS GIVEN. SHARED DECISION MAKING: DISCUSSED WITH PATIENT THAT THEIR WORKUP WAS NORMAL. PATIENT INSTRUCTED TO FOLLOW UP WITH PRIMARY CARE PROVIDER IN 1-2 DAYS FOR RE- EVALUATION OF SYMPTOMS. PATIENT VERBALIZES UNDERSTANDING TO RETURN TO ED FOR NEW OR WORSENING SYMPTOMS OR IF FOLLOW UP WITH PCP CANNOT BE OBTAINED. PATIENT FEELS COMFORTABLE GOING HOME AT THIS TIME. ALL QUESTIONS ADDRESSED AT TIME OF DISCHARGE. Time of 1ST Reevaluation: 17:47 Reevaluation 1ST: Improved Patient Education/Counseling: Diagnosis, Treatment, Need For Follow Up Family Education/Counseling: Diagnosis, Treatment, No Family Present Medical Screening: No EMC Exist At This Time Departure 1 Departure Time of Disposition: 17:48 Impression: Primary Impression: Medication refill Additional Impression: History of depression Disposition: HOME / SELF CARE / HOMELESS Condition: Stable Additional Instructions: FOLLOW-UP WITH PCP IN 1 TO 2 DAYS. TAKE MEDICATIONS PRESCRIBED. RETURN TO ED FOR ANY NEW OR WORSENING SYMPTOMS. e-Prescriptions Paroxetine (PAXIL TABLET) 20 Mg Tb 1 TAB PO DAILY, #30 TAB Prov: ENIO JALLOH 12/22/24 Estradiol (Estradiol) 1 Mg Tab 1 MG PO DAILY, #30 TAB Prov: ENIO JALLOH 12/22/24 Medroxyprogesterone Acetate (Medroxyprogesterone Aceta) 2.5 Mg Tab 1 TAB PO DAILY, #30 TAB Prov: NEIO JALLOH 12/22/24 Discharged With: Self Critical Care Note Critical Care Time?: No Stability Stability form required: No Heart Score Heart Score: Heart Score Response (Comments) Value History N/A 0 EKG N/A 0 Age N/A 0 Risk Factors N/A 0 Troponin N/A 0 Total 0 I personally scribed for ENIO JALLOH ([email or web address]) on 12/22/24 at 17:41. Electronically submitted by Trevor Jeff [email or web address]). ENIO JALLOH Dec 22, 2024 17:41
== END 2024-12-22 17:48 | disposition home or self-care (01) ==
LOC: ER 16:48
DX: F32.A Depression, unspecified (principal); R25.1 Tremor, unspecified; F41.9 Anxiety disorder, unspecified; I10 Essential (primary) hypertension; Z76.0 Encounter for issue of repeat prescription; Z79.899 Other long term (current) drug therapy; Z88.0 Allergy status to penicillin

== ENCOUNTER 2024-12-24 14:00 | Emergency (ER) | payer MEDICAID ==
[~2024-12-24] VITALS: Ht 165.1 cm; Wt 82.3 kg
[~2024-12-24 14:00] MED LIST changes: +PAR20T PO
[2024-12-24 14:48] VITALS: BP 142/83; PULSE 93; RESP 16; TEMP 97.8; O2SAT 98
--- NOTE | 2024-12-24 15:05 | ED.PDOC ---
History of Present Illness HPI Comments A 59 YEAR OLD FEMALE PRESENTS TO THE ED WITH COMPLAINT OF NECK PAIN THAT RADIATES TO UPPER BACK AND RIGHT UPPER EXTREMITY YESTERDAY. PATIENT REPORTS WORSENING PAIN FOLLOWING INITIAL ONSET THAT WAS PROVOKED AFTER SHE LAID IN HER BED, LAST NIGHT. SHE STATES ON PAIN WORSENING WITH MOVEMENT. PATIENT INFORMS OF RECENT CERVICAL SPINAL FUSION PROCEDURE PERFORMED ON HER AND HAVING A HISTORY OF CHRONIC NECK PAIN WITH 10MG NORCO MEDICATION USE. PATIENT DENIES FEVER, CHILLS, SHORTNESS OF BREATH, CHEST PAIN, ABDOMINAL PAIN, NAUSEA, VOMITING, HEADACHE, OR OTHER COMPLAINTS. NO OTHER SYMPTOMS OR MODIFYING FACTORS AT THIS TIME. Chief Complaint: Back Pain Time Seen by MD: 14:45 Primary Care Provider: NONE Reviewed Notes: Nurses Notes, Medications, Allergies Allergies: Coded Allergies: Penicillins (Verified Allergy, Unknown, 07/11/20) Home Meds Active Scripts Prednisone (Prednisone) 20 Mg Tab, 40 MG PO DAILY, #20 TAB Prov:ENIO JALLOH 12/24/24 Methocarbamol (Methocarbamol) 750 Mg Tab, 750 MG PO BID, #24 TAB Prov:ENIO JALLOH 12/24/24 Paroxetine (PAXIL TABLET) 20 Mg Tb, 1 TAB PO DAILY, #30 TAB Prov:ENIO JALLOH 12/22/24 Estradiol (Estradiol) 1 Mg Tab, 1 MG PO DAILY, #30 TAB Prov:ENIO JALLOH 12/22/24 Medroxyprogesterone Acetate (Medroxyprogesterone Aceta) 2.5 Mg Tab, 1 TAB PO DAILY, #30 TAB Prov:ENIO JALLOH 12/22/24 Tamsulosin Hcl (Flomax) 0.4 Mg Cap, 1 CAP PO DAILY for 14 Days, #14 CAP 11 Refills Prov:PAULINA CHU RESIDENT 11/22/23 Ciprofloxacin HCl (Ciprofloxacin Hydrochlori) 500 Mg Tab, 500 MG PO BID for 5 Days, #10 TAB Prov:PAULINA CHU RESIDENT 11/22/23 Reported Medications Sumatriptan Succinate (Imitrex) 50 Mg Tab, PO 11/18/23 Hydrocodone-Acetaminophen (Hydrocodone/Acetaminophen 7.5-325 mg) 1 Tab Tab 11/18/23 Paroxetine Hydrochloride (Paroxetine Hydrochloride) 40 Mg Tab, 40 MG PO DAILY 11/16/23 Estradiol (Estradiol) 1 Mg Tab, 1 TAB PO DAILY 11/16/23 Gabapentin (Gabapentin) 300 Mg Cap, 300 MG PO BID 11/16/23 Lisinopril (Lisinopril) 10 Mg Tab, 1 TAB PO DAILY 11/16/23 Medroxyprogesterone Acetate (Medroxyprogesterone Aceta) 2.5 Mg Tab, 1 TAB PO DAILYPRN 07/12/20 Information Source: Patient Mode of Arrival: Wheelchair Severity: Moderate Timing: Days Duration: Since onset, Days Prehospital treatment: None Medication Refill: For: Other (NECK PAIN TO RIGHT UPPER EXTREMITY. ) Past Medical History PAST MEDICAL HISTORY: Anxiety, Depression, HTN, Kidney Stones Past Medical History (Other): CHRONIC NECK PAIN DDD OF NECK Surgical History (Other): CERVICLE SPINAL FUSION FIELD ENGINEER History: Denies all FIELD ENGINEER Hx Family History Family History: Family hx of HTN Social History Smoker: Non-Smoker Alcohol: Rarely Drugs: Denies Drug Use Lives In: Home Constitutional: reports: others (ANXIETY ); denies: chills, diaphoresis, fatigue, fever, malaise, sweats, weakness EENTM: denies: blurred vision, double vision, ear bleeding, ear discharge, ear drainage, ear pain, ear ringing, eye pain, eye redness, hearing loss, mouth pain, mouth swelling, nasal discharge, nose bleeding, nose congestion, nose zach n, photophobia, tearing, throat pain, throat swelling, voice changes, others Respiratory: denies: cough, hemoptysis, orthopnea, SOB at rest, shortness of breath, SOB with excertion, stridor, wheezing, others Cardiovascular: denies: chest pain, dizzy spells, diaphoresis, Dyspnea on exertion, edema, irregular heart beat, left arm pain, lightheadedness, palpitations, PND, syncope, others Gastrointestinal: denies: abdomen distended, abdominal pain, blood streaked bowels, constipated, diarrhea, dysphagia, difficulty swallowing, hematemesis, melena, nausea, poor appetite, poor fluid intake, rectal bleeding, rectal pain, vomiting, others Genitourinary: denies: abnormal vagina bleeding, burning, dyspareunia, dysuria, flank pain, frequency, hematuria, incontinence, pain, , vagina discharge, urgency, others Neurological: denies: dizziness, fainting, headache, left sided numbness, left sided weakness, numbness, paresthesia, pre-existing deficit, right sided numbness, right sided weakness, seizure, speech problems, tingling, tremors, weakness, others Musculoskeletal: reports: back pain (UPPER BACK ), joint pain (RIGHT ELEBOW), muscle pain, neck pain (POSTERIOR SIDE ); denies: gout, joint swelling, muscle stiffness, others Integumetry: denies: bruises, change in color, change in hair/nails, dryness, laceration, lesions, lumps, rash, wounds, others Allergic/Immunocompromised: denies: Difficulty Healing, Frequent Infections, Hives, Itching, others Hematologic/Lymphatic: denies: anemia, blood clots, easy bleeding, easy bruising, swollen glands, others Endocrine: denies: excessive hunger, excessive sweating, excessive thirst, excessive urination, flushing, intolerance to cold, intolerance to heat, unexplained weight gain, unexplained weight loss, others Psychiatric: denies: anxiety, bipolar disorder, depression, hopeless, panic disorder, schizophrenia, sleepless, suicidal, others All Other Systems: Reviewed and Negative Physical Exam General Appearance: Mild Distress, Normal, Other (ANXIOUS ) HEENT: Normal ENT Inspection, PERRL/EOMI, Pharynx Normal, TMs Normal Neck: Full Range of Motion, Normal Inspection, Supple, Tender Lateral (MUSCLE SPASM ON POSTERIOR NECK, NO BONY TENDERNESS, SWELLINGERYTHEMA AND DEFORMITY. ) Respiratory: Chest Non-Tender, Lungs Clear, No Accessory Muscle Use, No Respiratory Distress, Normal Breath Sounds Cardiovascular: No Edema, No JVD, No Murmur, No Gallop, Normal Peripheral Pulses, Regular Rate/Rhythm Breast Exam: Deferred Gastrointestinal: No Organomegaly, Non Tender, No Pulsatile Mass, Normal Bowel Sounds, Soft Genitalia: Deferred Pelvic: Deferred Rectal: Deferred Extremities: No calf tenderness, Normal capillary refill, Normal inspection, Normal range of motion, Non-tender, No pedal edema Musculoskeletal : Location: Bilateral Extremity Location: Back Apperance: Tenderness (AND MUSCLE SPASM ON UPPER BACK, NO ERYTHEMA AND SWELLING. ) Neurologic: Alert, project facilitator II-XII nml as Tested, No Motor Deficits, Normal Affect, Normal Mood, No Sensory Deficits Cerebellar Function: Normal Reflexes: Normal Skin: Dry, Normal Color, Warm Peripheral Pulses: 2+ carotid (R), 2+ carotid (L) Lymphatic: No Adenopathy Was a procedure done? Was a procedure done?: No Differential Dx Considerations may include: CHRONIC BACK PAIN, S/P NECK FUSION PAIN, ANXIETY REACTION, DDD OF C-SPINE, CERVICAL RADICULOPATHY X-Ray, Labs, Meds, VS Vital Signs Date Time Temp Pulse Resp B/P (MAP) Pulse Ox O2 Delivery O2 Flow Rate FiO2 12/24/24 14:48 97.8 93 16 142/83 (102) 98 97.8 12/24/24 14:48 93 16 98 Room Air 12/24/24 14:18 97.8 93 16 142/83 (102) 98 97.8 Current Medications Medications (Trade) Dose Ordered Sig/Timoteo Route Start Time Stop Time Status Last Admin Ketorolac Tromethamine (Toradol Injection) 60 mg ONCE ONCE IM 12/24/24 15:00 12/24/24 15:01 DC 12/24/24 15:25 Methylprednisolone Sodium Succinate (Solu Medrol) 125 mg ONCE ONCE IM 12/24/24 16:00 12/24/24 16:01 DC 12/24/24 16:02 PATIENT: DEBRA COURTNEY LACCT: [id number]: [id number] : 1965 LOC: ER ROOM / BED: / AGE / SEX: 59 / F ADM STATUS: REG ER SERVICE [id number] ORDERING PHYSICIAN: ENIO JALLOH PROCEDURE(s): CERV2 - CERVICAL SPINE 3V REASON: NECK PAIN, NO INJURY, HX OF NECK SURGERY IN THE PAST ORDER NUMBER(s): [id number], ACCESSION NUMBER(s): [id number] EXAM: XY CERVICAL SPINE 3V HISTORY: NECK PAIN, NO INJURY, HX OF NECK SURGERY IN THE PAST COMPARISON: None TECHNIQUE: AP, lateral, and odontoid views of the cervical spine were performed. FINDINGS: No cervical fracture, listhesis, or prevertebral soft tissue edema are identified. There are postoperative changes of ACDF C4-C6, without evidence of hardware complication. There is advanced degenerative disc disease C3-C4. There is advanced facet arthropathy bilaterally. IMPRESSION: 1. Degenerative changes of the cervical spine without evidence of fracture. 2. Postoperative changes of ACDF C4-C6. ATED BY: FABI MACEDO MD DICTATED DATE/TIME: 12/24/241540 SIGNED BY: FABI MACEDO MD SIGNED DATE/TIME: 12/24/241540 CC: X-Ray, Labs, Meds, VS Comment EXTERNAL MEDICAL RECORDS REVIEWED: [NONE] INDEPENDENT HISTORIANS: [NONE] SOCIAL DETERMINANTS OF HEALTH: [NONE] LABS ORDERED: NONE REVIEWED AND INTERPRETED RESULTS: NONE IMAGING ORDERED: CERVICAL SPINE 3V XRAY TREATMENTS ORDERED: KETOROLAC 60MG IM AND SOLUMEDROL 125MG IM PROCEDURES PERFORMED: NONE CRITICAL CARE TIME: NONE I HAVE DISCUSSED THE PATIENT WITH THE ATTENDING PHYSICIAN DR. GUILLEN AND HE AGREES WITH THE PATIENT'S PLAN OF CARE AND DISPOSITION. BASED ON HISTORY OF PRESENT ILLNESS, AND PHYSICAL EXAM, PATIENT WILL BE DISCHARGED HOME. DISCUSSED PLAN FOR DISCHARGE HOME. SHARED DECISION MAKING: DISCUSSED WITH PATIENT THAT THEIR WORKUP WAS NORMAL. PATIENT INSTRUCTED TO FOLLOW UP WITH PRIMARY CARE PROVIDER IN 1-2 DAYS FOR RE- EVALUATION OF SYMPTOMS. PATIENT VERBALIZES UNDERSTANDING TO RETURN TO ED FOR NEW OR WORSENING SYMPTOMS OR IF FOLLOW UP WITH PCP CANNOT BE OBTAINED. PATIENT FEELS COMFORTABLE GOING HOME AT THIS TIME. ALL QUESTIONS ADDRESSED AT TIME OF DISCHARGE. Time of 1ST Reevaluation: 16:30 Reevaluation 1ST: Improved Patient Education/Counseling: Diagnosis, Treatment, Need For Follow Up Family Education/Counseling: Diagnosis, Treatment, Need For Follow Up, No Family Present Medical Screening: No EMC Exist At This Time Departure 1 Departure Time of Disposition: 16:45 Impression: Primary Impression: Post-op pain Additional Impressions: DDD (degenerative disc disease), cervical Cervical radicular pain Disposition: 01 HOME / SELF CARE / HOMELESS Condition: Stable Additional Instructions: F/U PCP IN 2 DAYS RECHECK. IF CONDITION BECOME WORSE, RETURN TO ED ANJUM. e-Prescriptions Prednisone (Prednisone) 20 Mg Tab 40 MG PO DAILY, #20 TAB Prov: ENIO JALLOH 12/24/24 Methocarbamol (Methocarbamol) 750 Mg Tab 750 MG PO BID, #24 TAB Prov: ENIO JALLOH 12/24/24 Discharged With: Self, Relative Critical Care Note Critical Care Time?: No Stability Stability form required: No Heart Score Heart Score: Heart Score Response (Comments) Value History N/A 0 EKG N/A 0 Age N/A 0 Risk Factors N/A 0 Troponin N/A 0 Total 0 I personally scribed for ENIO JALLOH ([email or web address]) on 12/24/24 at 15:05. Elec tronically submitted by Mikhail Norton ([email or web address]). I personally scribed for ENIO JALLOH ([email or web address]) on 12/24/24 at 16:02. Jacinta ctronically submitted by Mikhail Norton ([email or web address]). ENIO JALLOH Dec 24, 2024 15:05
[2024-12-24] MEDS: KETOROLAC TROMETH 60MG/2ML VIAL IM ONE (15:25)
--- NOTE | 2024-12-24 15:43 | DVH ---
EXAM: XY CERVICAL SPINE 3V HISTORY: NECK PAIN, NO INJURY, HX OF NECK SURGERY IN THE PAST COMPARISON: None TECHNIQUE: AP, lateral, and odontoid views of the cervical spine were performed. FINDINGS: No cervical fracture, listhesis, or prevertebral soft tissue edema are identified. There are postope rative changes of ACDF C4-C6, without evidence of hardware complication. There is advanced degenerati ve disc disease C3-C4. There is advanced facet arthropathy bilaterally. IMPRESSION: 1. Degenerative changes of the cervical spine without evidence of fracture. 2. Postoperative changes of ACDF C4-C6.
[2024-12-24] MEDS ORDERED: METH-1182 PO (16:00)
[2024-12-24] MEDS ORDERED: PRED20TA2 PO (16:00)
[2024-12-24] MEDS: methylPREDNISolone SOD SUCC 125 MG/2 ML VL IM ONE (16:02)
== END 2024-12-24 16:23 | disposition home or self-care (01) ==
LOC: ER 14:00
DX: M50.10 Cervical disc disorder with radiculopathy, unspecified cervical region (principal); G89.18 Other acute postprocedural pain; F41.9 Anxiety disorder, unspecified; F32.A Depression, unspecified; I10 Essential (primary) hypertension; Z79.899 Other long term (current) drug therapy; Z79.52 Long term (current) use of systemic steroids; Z88.0 Allergy status to penicillin
CPT/HCPCS: 72040; 96372; 99284; J1885; J2919

== ENCOUNTER 2025-07-04 13:55 | Emergency (ER) | payer BC, MEDICAID ==
[~2025-07-04] VITALS: Ht 165.1 cm; Wt 75.5 kg
[~2025-07-04 13:55] MED LIST changes: +METH-1182 PO; +PRED20TA2 PO
--- NOTE | 2025-07-04 14:26 | ED.PDOC ---
General HPI Comments This is a 60 year old female presenting to the ED with chief complaint of flank pain. Patient reports that she has been experiencing right sided flank pain with associated nausea chills, and inability to void for the past hour. Patient relays that she has history of kidney stones and lithotripsy performed by Dr. Mora in [facility]. Patient states her pain is currently a 9/10. Patient denies any vomiting, diarrhea, abdominal pain, hematuria, or dysuria. Chief Complaint: Flank Pain Time Seen by MD: 14:23 Primary Care Provider: NONE Reviewed notes: Nurses Notes, Medications, Allergies Allergies: Coded Allergies: Penicillins (Verified Allergy, Unknown, 07/11/20) Home Meds Active Scripts Prednisone (Prednisone) 20 Mg Tab, 40 MG PO DAILY, #20 TAB Prov:ENIO JALLOH 12/24/24 Methocarbamol (Methocarbamol) 750 Mg Tab, 750 MG PO BID, #24 TAB Prov:ENIO JALLOH 12/24/24 Paroxetine (PAXIL TABLET) 20 Mg Tb, 1 TAB PO DAILY, #30 TAB Prov:ENIO JALLOH 12/22/24 Estradiol (Estradiol) 1 Mg Tab, 1 MG PO DAILY, #30 TAB Prov:ENIO JALLOH 12/22/24 Medroxyprogesterone Acetate (Medroxyprogesterone Aceta) 2.5 Mg Tab, 1 TAB PO DAILY, #30 TAB Prov:ENIO JALLOH 12/22/24 Tamsulosin Hcl (Flomax) 0.4 Mg Cap, 1 CAP PO DAILY for 14 Days, #14 CAP 11 Refills Prov:PAULINA CHU RESIDENT 11/22/23 Ciprofloxacin HCl (Ciprofloxacin Hydrochlori) 500 Mg Tab, 500 MG PO BID for 5 Days, #10 TAB Prov:PAULINA CHU RESIDENT 11/22/23 Reported Medications Sumatriptan Succinate (Imitrex) 50 Mg Tab, PO 11/18/23 Hydrocodone-Acetaminophen (Hydrocodone/Acetaminophen 7.5-325 mg) 1 Tab Tab 11/18/23 Paroxetine Hydrochloride (Paroxetine Hydrochloride) 40 Mg Tab, 40 MG PO DAILY 11/16/23 Estradiol (Estradiol) 1 Mg Tab, 1 TAB PO DAILY 11/16/23 Gabapentin (Gabapentin) 300 Mg Cap, 300 MG PO BID 11/16/23 Lisinopril (Lisinopril) 10 Mg Tab, 1 TAB PO DAILY 11/16/23 Medroxyprogesterone Acetate (Medroxyprogesterone Aceta) 2.5 Mg Tab, 1 TAB PO DAILYPRN 07/12/20 Information Source: Patient, Friend Mode of Arrival: Ambulatory Severity: Moderate Inability to void: Moderate Timing: Hours Duration: Since onset Has not urinated for: Hours Prehospital treatment: None Onset: Spontaneous Symptoms: Inability to void History of: Kidney stone Location: (R) Flank associated signs and symptoms: Flank Pain, Inability to Void Past Medical History PAST MEDICAL HISTORY: Anxiety, Depression, HTN, Kidney Stones Surgical History (Other): Neck surgery, Lithotripsy HOME SERVICE ADVISOR History: Denies all HOME SERVICE ADVISOR Hx Family History Family History: Reviewed,noncontributory to illness, Family hx of HTN Social History Smoker: Non-Smoker Alcohol: Rarely Drugs: Denies Drug Use Lives In: Home Constitutional: denies: chills, diaphoresis, fatigue, fever, malaise, sweats, weakness, others EENTM: denies: blurred vision, double vision, ear bleeding, ear discharge, ear drainage, ear pain, ear ringing, eye pain, eye redness, hearing loss, mouth pain, mouth swelling, nasal discharge, nose bleeding, nose congestion, nose pain, photophobia, tearing, throat pain, throat swelling, voice changes, others Respiratory: denies: cough, hemoptysis, orthopnea, SOB at rest, shortness of breath, SOB with excertion, stridor, wheezing, others Cardiovascular: denies: chest pain, dizzy spells, diaphoresis, Dyspnea on exertion, edema, irregular heart beat, left arm pain, lightheadedness, palpitations, PND, syncope, others Gastrointestinal: denies: abdomen distended, abdominal pain, blood streaked bowels, constipated, diarrhea, dysphagia, difficulty swallowing, hematemesis, melena, nausea, poor appetite, poor fluid intake, rectal bleeding, rectal pain, vomiting, others Genitourinary: reports: flank pain, others (Inability to void); denies: abnormal vagina bleeding, burning, dyspareunia, dysuria, frequency, hematuria, incontinence, pain, , vagina discharge, urgency Neurological: denies: dizziness, fainting, headache, left sided numbness, left sided weakness, numbness, paresthesia, pre-existing deficit, right sided numbness, right sided weakness, seizure, speech problems, tingling, tremors, weakness, others Musculoskeletal: denies: back pain, gout, joint pain, joint swelling, muscle pain, muscle stiffness, neck pain, others Integumetry: denies: bruises, change in color, change in hair/nails, dryness, laceration, lesions, lumps, rash, wounds, others Allergic/Immunocompromised: denies: Difficulty Healing, Frequent Infections, Hives, Itching, others Hematologic/Lymphatic: denies: anemia, blood clots, easy bleeding, easy bruising, swollen glands, others Endocrine: denies: excessive hunger, excessive sweating, excessive thirst, excessive urination, flushing, intolerance to cold, intolerance to heat, unexplained weight gain, unexplained weight loss, others Psychiatric: denies: anxiety, bipolar disorder, depression, hopeless, panic disorder, schizophrenia, sleepless, suicidal, others All Other Systems: Reviewed and Negative Physical Exam General Appearance: Moderate Distress HEENT: Normal ENT Inspection, Pharynx Normal, TMs Normal Neck: Full Range of Motion, Non-Tender, Normal, Normal Inspection Respiratory: Chest Non-Tender, Lungs Clear, No Accessory Muscle Use, No Respiratory Distress, Normal Breath Sounds Cardiovascular: No Edema, No JVD, No Murmur, No Gallop, Normal Peripheral Pulses, Regular Rate/Rhythm Breast Exam: Deferred Gastrointestinal: No Organomegaly, Non Tender, No Pulsatile Mass, Normal Bowel Sounds, Soft Genitalia: Deferred Pelvic: Deferred Rectal: Deferred Extremities: No calf tenderness, Normal capillary refill, Normal inspection, Normal range of motion, Non-tender, No pedal edema Musculoskeletal : Location: Right Extremity Location: Back Apperance: Limited ROM, Tenderness: Moderate Neurologic: Alert, high worker II-XII nml as Tested, Motor Weakness, Normal Affect, Normal Mood, No Sensory Deficits Cerebellar Function: Normal Reflexes: Normal Skin: Dry, Normal Color, Warm Lymphatic: No Adenopathy Was a procedure done? Was a procedure done?: No Differential Diagnosis Kidney stone (Female): Musculoskeletal pain, Strain, Urolithiasis X-Ray, Labs, Meds, VS Vital Signs Date Time Temp Pulse Resp B/P (MAP) Pulse Ox O2 Delivery O2 Flow Rate FiO2 07/04/25 13:59 97.7 72 18 153/81 99 97.7 Lab Test 07/04/25 14:32 Range/Units White Blood Count 5.0 4.4-10.8 10^3/uL Red Blood Count 4.10 4.0-5.20 10^6/uL Hemoglobin 13.8 12.2-16.2 g/dL Hematocrit 41.1 36.0-46.0 % Mean Corpuscular Volume 100.3 H 80.0-100.0 fL Mean Corpuscular Hemoglobin 33.7 H 28.0-32.0 pg Mean Corpuscular Hemoglobin Concent 33.6 32.0-36.0 g/dL Red Cell Distribution Width 12.7 11.8-14.3 % Platelet Count 306 140-450 10^3/uL Mean Platelet Volume 7.6 6.9-10.8 fL Neutrophils (%) (Auto) 63.0 37.0-80.0 % Lymphocytes (%) (Auto) 26.9 10.0-50.0 % Monocytes (%) (Auto) 7.8 0.0-12.0 % Eosinophils (%) (Auto) 2.1 0.0-7.0 % Basophils (%) (Auto) 0.2 0.0-2.0 % Neutrophils # (Auto) 3.1 1.6-8.6 10 ^3/uL Lymphocytes # (Auto) 1.3 0.4-5.4 10 ^3/uL Monocytes # (Auto) 0.4 0-1.3 10 ^3/uL Eosinophils # (Auto) 0.1 0-0.8 10 ^3/uL Basophils # (Auto) 0 0-0.2 10 ^3/uL Nucleated Red Blood Cells 0.1 % Sodium Level 145 136-145 mmol/L Potassium Level 3.3 L 3.5-5.1 mmol/L Chloride Level 108 H 98-107 mmol/L Carbon Dioxide Level 25 20-31 mmol/L Anion Gap 12 5-15 Blood Urea Nitrogen 12 9-23 mg/dL Creatinine 0.87 0.550-1.02 mg/dL Glomerular Filtration Rate Calc 76 >90 mL/min BUN/Creatinine Ratio 13.8 10.0-20.0 Serum Glucose 97 74-106 mg/dL Calcium Level 9.4 8.7-10.4 mg/dL CT Abd/Pel indicates: There is a 2 mm calculus in the distal right ureter. There is mild right hydronephrosis. There is a nonobstructive 2 mm calculus at the inferior pole of the left kidney. Normal appendix IV Hep-Lock was established. The patient is being given Dilaudid 0.5 mg IV push The patient was given ketorolac 30 mg IV push The CBC and chemistry panel are within normal limits The urine test is pending At this time the patient will be admitted with a diagnosis of intractable abdominal pain as well as ureterolithiasis Images Reviewed?: Images reviewed and evaluated by me Time of 1ST Reevaluation: 16:40 Reevaluation 1ST: Unchanged Patient Education/Counseling: Diagnosis, Treatment Family Education/Counseling: No Family Present SEPSIS Sepsis Screen Date sepsis recognized/suspect: Jul 04, 2025 Time Sepsis recognized/suspect: 1358 Recent Procedure: No On Antibiotic Therapy: No Respiratory Rate >20: No Heart Rate >90: No Temp<36 C (96.8 F) or >38.3 C: No SBP <90 or MAP <65 mmHG: No New Acute Mental Status Change: No Is the patient on CPAP, BIPAP,: No Physician Orders Urinalysis (07/04/25 14:20) Ct Ab Pel Wo Con-No Oral Or Iv (07/04/25 14:20) Heplock Iv (07/04/25 14:20) Electrician Elevator Maintenance (07/04/25 14:20) Blood Pressure (07/04/25 14:20) Pulse Oximetry (07/04/25 14:20) Vital Signs Date Time Temp Pulse Resp B/P (MAP) Pulse Ox O2 Delivery O2 Flow Rate FiO2 07/04/25 13:59 97.7 72 18 153/81 99 97.7 Laboratory Tests Test 07/04/25 14:32 White Blood Count 5.0 10^3/uL (4.4-10.8) Departure 1 Departure Time of Disposition: 16:40 Impression: Primary Impression: Calculus of ureterovesical junction (UVJ) Additional Impressions: Right flank pain Hydronephrosis of right kidney Disposition: ADMITTED INPATIENT Admit to: Med Surg Condition: Fair Critical Care Note Critical Care Time?: No Stability Stability form required: Yes Unstable for transfer: ED Physician Assesment (Clinical assesment) Heart Score Heart Score: Heart Score Response (Comments) Value History N/A 0 EKG N/A 0 Age N/A 0 Risk Factors N/A 0 Troponin N/A 0 Total 0 I personally scribed for DIDI BLAS MD ([email or web address]) on 07/04/25 at 14:26. Electronically submitted by Trevor Jeff ([email or web address]). I personally scribed for DIDI BLAS MD ([email or web address]) on 07/04/25 at 15:16. Electronically submitted by Trevor Jeff ([email or web address]). DIDI BLAS MD Jul 04, 2025 14:26
[2025-07-04 14:52] LABS: Hematocrit 41.1 % (36.0-46.0); Hemoglobin 13.8 g/dL (12.2-16.2); Mean Corpuscular Hemoglobin 33.7 pg (28.0-32.0); Mean Corpuscular Volume 100.3 fL (80.0-100.0); Nucleated Red Blood Cells % 0.1 %
[2025-07-04 14:54] LABS: Anion Gap 12 (5-15); Calcium 9.4 mg/dL (8.7-10.4); Carbon Dioxide 25 mmol/L (20-31)
[2025-07-04 14:56] LABS: Chloride 108 mmol/L (98-107); Potassium 3.3 mmol/L (3.5-5.1); Sodium 145 mmol/L (136-145)
[2025-07-04 14:59] LABS: BUN/Creatinine Ratio 13.8 (10.0-20.0); Blood Urea Nitrogen 12 mg/dL (9-23); Glucose 97 mg/dL (74-106)
--- NOTE | 2025-07-04 15:12 | DVH ---
COMPUTERIZED TOMOGRAPHY ABDOMEN AND PELVIS WITHOUT CONTRAST REASON FOR EXAM: right flank pain COMPARISON: CT CT AB PEL WO CON-NO ORAL OR IV on DOS: 11/18/23, CT CT AB PEL WO CON-NO ORAL OR IV on D OS: 11/16/23, CT ABD PELVIS WO CONTRAST on DOS: 02/03/21, CT ABD PELVIS WO CONTRAST on DOS: 07/11/20 TECHNIQUE: Spiral scans were acquired from the diaphragm to the symphysis pubis without intravenous c ontrast administration. 2-D coronal and sagittal reformatted images were provided. Radiation optimiza tion: All CT scans at this facility use at least one of these dose optimization techniques: Automated exposure control mA and/or kV adjustment per patient size (includes targeted exams where dose is mat ched to clinical indication) or iterative reconstruction. RADIATION DOSE: CTDI: 11 mGy DLP: 578 mGy-cm FINDINGS: The visualized lung bases are grossly clear. There is no pleural effusion. There is no pericardial effusion. The spleen is not enlarged. The liver is normal in size and contour. No calcified gallstone is ident ified. Evaluation of the abdominal organs is suboptimal in the absence of intravenous contrast. Unenh anced appearance of the pancreas is within normal limits. The adrenal glands are normal. The kidneys are similar in size. There is a 2 mm nonobstructive calculus at the inferior pole of the left kidney. There is a 1.7 cm simple appearing cyst at the inferior pole of the left kidney which requires no de dicated follow-up. There is mild right hydronephrosis. There is moderate persistent right pelviectasi s. There is a 2 mm calculus in the distal right ureter, approximately 4-5 mm from the bladder. The ur inary bladder is decompressed and is not well evaluated on the current study. The uterus and ovaries are within normal limits for age. No free fluid is identified in the abdomen or pelvis. No pathologi c lymphadenopathy is identified by size criteria. There is no pathologic distention of the small maryellen l. The colonic stool burden is small to moderate. The appendix is normal. No acute osseous abnormali ty is identified. IMPRESSION: There is a 2 mm calculus in the distal right ureter. There is mild right hydronephrosis. There is a nonobstructive 2 mm calculus at the inferior pole of the left kidney. Normal appendix
[2025-07-04] MEDS: ONDANSETRON HCL 4 MG/2 ML VIAL IV ONE (17:27)
[2025-07-04] MEDS: SODIUM CHLORIDE 0.9% 1,000 ML IVB ONE (17:27)
[2025-07-04] MEDS: KETOROLAC TROMETH 30 MG/ML 1ML VIAL IV ONE (17:28)
[2025-07-04] MEDS: HYDROmorphone HCL 2 MG/ML VL/or syr IV ONE (17:29)
[2025-07-04 17:33] VITALS: TEMP 98; O2SAT 98
[2025-07-04 17:59] VITALS: BP 138/91; PULSE 69; RESP 18
[2025-07-04] MEDS ORDERED: HYDROcodone-ACET 5/325MG TAB PO PRN (19:15)
[2025-07-04] MEDS ORDERED: KETOROLAC TROMETH 30 MG/ML 1ML VIAL IV PRN (19:15)
[2025-07-04] MEDS ORDERED: ONDANSETRON HCL 4 MG/2 ML VIAL IV PRN (19:15)
[2025-07-04] MEDS ORDERED: ACETAMINOPHEN 325 MG TAB PO PRN (19:15)
[2025-07-04] MEDS ORDERED: GABAPENTIN 300 MG CAP PO SCH (22:00)
[2025-07-05] MEDS ORDERED: PARoxetine 20 MG TAB PO SCH (10:00)
[2025-07-05] MEDS ORDERED: LISINOPRIL 5 MG TAB PO SCH (10:00)
== END 2025-07-04 20:20 | disposition left against medical advice (07) ==
LOC: ER 13:55 → OVERFLOW 19:15 → UNDOADMIN 19:15 → OVERFLOW 20:20 → UNDODISIN 20:50
DX: N20.1 Calculus of ureter (principal); N13.30 Unspecified hydronephrosis
CPT/HCPCS: 36415; 74176; 80048; 85025; 96361; 96374; 96375; 99285; J1171; J1885; J2405; J7030; G0378